=== PATIENT | male | born 1945 | race Caucasian/White ===

== ENCOUNTER 2020-12-15 18:13 | Observation (INO) ==
[2020-12-15 18:32] VITALS: BMI 26.6
--- NOTE | 2020-12-15 19:37 | DR.SOBA ---
HPI Time Seen Time Seen by Provider: 12/15/20 19:36 Primary Care Physician Primary Care Physician: JACKLYN Camargo HPI Comment HPI Comment: PATIENT WITH A HISTORY OF CORONARY ARTERY BYPASS, COMPLAINS OF EXERTIONAL DYSPNEA X 24 HOURS. DENIES CHEST PAIN DISCOMFORT, PALPITATIONS, DIAPHORESIS, FEVER,CHILLS OR COUGHING. Complaints Chief Complaint Doctors Comments: EXERTIONAL DYSPNEA Chief Complaint:: PT REPORT THAT HE WENT FOR A FEW MINUTE WALK AND HE FELT WINDED AND HE FELT LIKE HE COULD NOT CATCH HIS BREATHE, PT IS AWAITING ECHO AND STRESS TEST ON 01/01/21, AND PT HAS AN EKG AT HIS PCP AND PT WAS TOLD IT WAS ABNORMAL THE WEEK BEFORE LAST ,BR Self Treatment fo Chief Complaint: PT APPEARS TO NOT BE IN ANY DISTRESS, PT AMBULATORY TO TRIAGE ,BR COVID-19 Coronavirus risk:travel/contact w/high risk person: No Has patient experienced Coronavirus symptoms: Yes Coronavirus symptoms experienced: Shortness of Breath Reviewed Nurses Notes Reviewed: Yes Source History Provided: Patient Mode of Arrival Mode of Arrival: Stretcher Timing Onset of Chief Complaint: 12/15/20 Duration Duration: Hours (24) Context Onset:: With Light Exertion PE Risk Factors:: None and Estrogen Use Currently on:: Neither Modifying Factors Worsens:: Exertion Improves:: Rest If Cough Cough: None PMH PMH Past Medical History: Yes Past Medical History Comment: EPLILEPSY, Past Surgical History: Yes Surgical History: CABG/Valve Surgery Past Surgical History Comment: KNEE REPLACEMENT, NECK Family History History of Family Medical Conditions: Yes Family Medical History Comment: HEART, Social History Does patient currently use any type of tobacco product: No Have you used tobacco products in the last 12 months: No Type of Tobacco Use: None Does any household member use tobacco: No Alcohol Use: None Do you use any recreational Drugs:: No Lives With: Family Lives Where: Home Travel Risk Coronavirus risk:travel/contact w/high risk person: No Has patient experienced Coronavirus symptoms: Yes Coronavirus symptoms experienced: Shortness of Breath Infectious screening In the last 2 months have you had wt loss of >10#?: NO Have you had fever, night sweats or hemotysis?: No Have you traveled outside the country in the last 6 months?: No Isolation: Standard ROS Review of Systems Constitutional: No Symptoms Reported Eyes: No Symptoms Reported ENTM: No Symptoms Reported Respiratoy: Short of Breath Cardiovascular: Other (EXERTIONAL DYSPNEA) Gastrointestinal/Abdominal: No Symptoms Reported Genitourinary: No Symptoms Reported Neurological: No Symptoms Reported Musculoskeletal: No Symptoms Reported Integumentary: No Symptoms Reported Hematologic/Lymphatic: No Symptoms Reported Endocrine: No Symptoms Reported Psychiatric: No Symptoms Reported All Other Systems: Reviewed and Negative PE Vital Signs Vitals: Temperature 98.3 F Pulse Rate 56 Respiratory Rate 18 Blood Pressure 137/63 O2 Sat by Pulse Oximetry 96 General General Appearance: Alert and In No Apparent Distress Head Head Exam: Normal Inspection, Atraumatic and Normocephalic Eyes Eye exam: Normal Appearance, PERRL and EOMI ENT ENT Exam: Normal Exam and Normal Oropharynx Neck Neck Exam: Normal Inspection and Full ROM Chest Chest Inspection: Normal Inspection and Symmetric Chest Wall Rise Respiratory Respiratory Exam: Normal Lung Sounds Bilat and Other (NO WHEEZES, RONCHI OR RALES) Respiratory Exam: Bilateral: Clear to Auscultation Cardiovascular Cardiovascular Exam: Regular Rate and Normal Rhythm Abdominal Exam Abdominal Exam: Normal Inspection and Normal Bowel Sounds Extremities Extremities Exam: Normal Inspection and Full ROM Back Back Exam: Normal Inspection and Full ROM Neurologic Neurological Exam: Alert, Oriented X3 and CN II-XII Intact Psychiatric Psychiatric Exam: Normal Affect and Normal Mood MDM Differential Diagnosis Differential Diagnosis: CHF, Pneumonia and Pulmonary embolism COURSE Treatment Treatment: SALINE LOCK, LOVENOX 40MG SUBQ Reevaluation 1st: Resolved (AT REST ONLY) Consultation Call Returned: 21:27 Consultation Comments: DISCUSSED FINDINGS WITH DR PATEL FOR OBSERVATION ROR Labs Reviewed Laboratory Results Reviewed?: Yes Result Diagrams: 12/15/20 19:15 12/15/20 19:15 Laboratory: WBC 9.1 X10^3/uL (3.6-10.0) 12/15/20 19:15 RBC 3.24 X10^6/uL (4.7-6.0) L 12/15/20 19:15 Hgb 10.8 g/dL (13.5-18.0) L 12/15/20 19:15 Hct 31.4 % (42.0-54.0) L 12/15/20 19:15 MCV 96.9 fL (80.0-100.0) 12/15/20 19:15 MCH 33.3 pg (27.0-34.0) 12/15/20 19:15 MCHC 34.3 g/dL (33.0-35.0) 12/15/20 19:15 RDW 12.7 % (11.6-16.5) 12/15/20 19:15 Plt Count 207 X10^3/uL (150.0-450.0) 12/15/20 19:15 MPV 9.2 fL (7.4-11.0) 12/15/20 19:15 Neut % (Auto) 65.6 % (42.0-75.0) 12/15/20 19:15 Lymph % (Auto) 25.1 % (21.0-51.0) 12/15/20 19:15 [place] % (Auto) 8.1 % (0.0-13.0) 12/15/20 19:15 Eos % (Auto) 1.0 % (0.9-2.9) 12/15/20 19:15 Baso % (Auto) 0.2 % (0.2-1.0) 12/15/20 19:15 Neut # (Auto) 6.0 x10^3/uL (2.2-4.8) H 12/15/20 19:15 Lymph # (Auto) 2.3 X10^3/uL (1.3-2.9) 12/15/20 19:15 [place] # (Auto) 0.7 x10^3/uL (0.3-0.8) 12/15/20 19:15 Eos # (Auto) 0.1 x10^3/uL (0.0-0.2) 12/15/20 19:15 Baso # (Auto) 0.0 X10^3/uL (0.0-0.1) 12/15/20 19:15 Absolute Nucleated RBC 0.1 /100WBC 12/15/20 19:15 PT 14.2 SECONDS (11.8-14.3) 12/15/20 19:15 INR Target Range - 12/15/20 19:15 INR 1.16 (0.8-1.3) 12/15/20 19:15 D-Dimer 1.89 ug/ml (0.0-0.57) H* 12/15/20 19:15 Sodium 138 mmol/L (136-145) 12/15/20 19:15 Corrected Sodium 139 mmol/L (136-145) 12/15/20 19:15 Potassium 5.1 mmol/L (3.5-5.1) 12/15/20 19:15 Chloride 105 mmol/L (98-107) 12/15/20 19:15 Carbon Dioxide 27.0 mmol/L (21-32) 12/15/20 19:15 BUN 27 mg/dL (7-18) H 12/15/20 19:15 Creatinine 1.86 mg/dL (0.70-1.30) H 12/15/20 19:15 Est GFR (MDRD) Af Amer 47 (>60) L 12/15/20 19:15 Est GFR (MDRD) Non-Af 39 (>60) L 12/15/20 19:15 Glucose 134 mg/dL (65-99) H 12/15/20 19:15 Calcium 8.7 mg/dL (8.5-10.1) 12/15/20 19:15 Corrected Calcium 9.4 mg/dL (8.5-10.1) 12/15/20 19:15 Total Bilirubin 0.20 mg/dL (0.2-1.0) 12/15/20 19:15 AST 28 Units/L (15-37) 12/15/20 19:15 ALT 32 Units/L (12-78) 12/15/20 19:15 Alkaline Phosphatase 108 Units/L (46-116) 12/15/20 19:15 Troponin I 0.04 ng/mL (0-1.5) 12/15/20 19:15 B-Natriuretic Peptide 362 pg/mL (0-79) H 12/15/20 19:15 Total Protein 6.5 g/dL (6.4-8.2) 12/15/20 19:15 Albumin 3.1 g/dL (3.4-5.0) L 12/15/20 19:15 Globulin 3.4 g/dL (2.5-4.5) 12/15/20 19:15 Albumin/Globulin Ratio 0.9 Ratio (1.1-2.1) L 12/15/20 19:15 SARS CoV-2 RNA Rapid MINGO Negative (NEGATIVE) 12/15/20 21:37 XRAY X-ray Results: PORTABLE CHEST XRAY MILD CARDIOMEGALY, NO EVIDENCE OF CONGESTIVE HEART FAILURE EKG Rate: 52 [place]: Normal Rhythm: SB and PACs Opioid Opioid Risk Tool Age (Yasmany box if 16-45): No History of Preadolescent Sexual Abuse: No Total: 0 Total Score Risk Category: Low Risk Copyright: Evelio NAZARIO predicting aberrant behaviors Diagnosis Discharge Problem: Acute dyspnea Instructions Forms: Precautions for COVID19 Patient Portal Social Distancing
[2020-12-15 19:54] LABS: BASOPHILS % (AUTO) 0.2 % (0.2-1.0); EOSINOPHILS # (AUTO) 0.1 x10^3/uL (0.0-0.2); HEMATOCRIT 31.4 % (42.0-54.0); HEMOGLOBIN 10.8 g/dL (13.5-18.0); LYMPHOCYTES # (AUTO) 2.3 X10^3/uL (1.3-2.9); LYMPHOCYTES % (AUTO) 25.1 % (21.0-51.0); MEAN CORPUSCULAR HEMOGLOBIN 33.3 pg (27.0-34.0); MEAN CORPUSCULAR HGB CONC 34.3 g/dL (33.0-35.0); MEAN CORPUSCULAR VOLUME 96.9 fL (80.0-100.0); MEAN PLATELET VOLUME 9.2 fL (7.4-11.0); MONOCYTES # (AUTO) 0.7 x10^3/uL (0.3-0.8); MONOCYTES % (AUTO) 8.1 % (0.0-13.0); NEUTROPHILS % (AUTO) 65.6 % (42.0-75.0); PLATELET COUNT 207 X10^3/uL (150.0-450.0); RED BLOOD COUNT 3.24 X10^6/uL (4.7-6.0); RED CELL DISTRIBUTION WIDTH 12.7 % (11.6-16.5); WHITE BLOOD COUNT 9.1 X10^3/uL (3.6-10.0)
[2020-12-15 20:03] LABS: ALBUMIN 3.1 g/dL (3.4-5.0); CALCIUM 8.7 mg/dL (8.5-10.1); COR CA(FOR HYPOALB) 9.4 mg/dL (8.5-10.1); CREATININE 1.86 mg/dL (0.70-1.30); TOTAL PROTEIN 6.5 g/dL (6.4-8.2); TROPONIN I 0.04 ng/mL (0-1.5)
--- NOTE | 2020-12-15 20:31 | RAD ---
CHEST, 1 VIEWHistory: PT REPORT THAT HE WENT FOR A FEW MINUTE WALK AND HE FELT WINDEDComparison: NoneFindings: Accounting for AP technique and patient rotation, the cardiac silhouette is mildly enlarged without congestive failure. Previous CABG noted. No acute alveolar infiltrate or significant effusion is identified. No pneumothorax.Impression: Mild cardiomegaly without CHF or additional acute cardiopulmonary abnormality.Electronically signed by: JAYLEN DODGE (Dec 15, 2020 20:28:43)
[2020-12-15] MEDS ORDERED: LOVENOX INJ 40 MG SYR SC ONE (23:16)
[2020-12-15] MEDS: LOVENOX INJ 40 MG SYR SC STA ×2 (23:18→23:19)
[2020-12-16 02:47] LABS: CKMB % 3.3 % (<4); CREATINE KINASE MB 3.3 ng/mL (0-4.0); TROPONIN I 0.13 ng/mL (0-1.5)
[2020-12-16] MEDS: PHENOBARBITAL TAB 30 MG (32.4MG) PO SCH ×4 (05:32→21:30)
[2020-12-16] MEDS: DILANTIN CAP 100 MG EXT REL PO SCH ×4 (05:32→21:30)
[2020-12-16] MEDS ORDERED: PHENOBARBITAL 30 MG PO SCH (06:00)
[2020-12-16 08:49] LABS: CKMB % 3.5 % (<4); CREATINE KINASE MB 3.4 ng/mL (0-4.0); TROPONIN I 0.18 ng/mL (0-1.5)
[2020-12-16] MEDS ORDERED: ASPIRIN EC 81 MG PO SCH (09:00)
[2020-12-16] MEDS ORDERED: PATIENT'S HOME MEDICATION (Levocetirizine 5 mg tablet) PO SCH (09:00)
[2020-12-16] MEDS ORDERED: PATIENT'S HOME MEDICATION (Aspirin 81 mg Tablet) PO SCH (09:00)
[2020-12-16] MEDS: ZyrTEC TAB 10 MG PO SCH (09:40)
[2020-12-16] MEDS: LOVENOX INJ 40 MG SYR SC SCH (09:40)
[2020-12-16] MEDS: CELEBREX PO SCH ×2 (09:40→10:00)
[2020-12-16] MEDS: TOPROL XL PO SCH (10:00)
[2020-12-16] MEDS: NS 1000 ML 1,000 ML IV SCH ×2 (11:02→21:30)
[2020-12-16] MEDS ORDERED: ULTRAM PO PRN (19:33)
[2020-12-17] MEDS: NS 1000 ML 1,000 ML IV SCH ×2 (03:12→10:48)
[2020-12-17] MEDS: DILANTIN CAP 100 MG EXT REL PO SCH (05:13)
[2020-12-17] MEDS: PHENOBARBITAL TAB 30 MG (32.4MG) PO SCH (05:13)
[2020-12-17 05:33] LABS: BASOPHILS % (AUTO) 0.4 % (0.2-1.0); EOSINOPHILS # (AUTO) 0.2 x10^3/uL (0.0-0.2); EOSINOPHILS % (AUTO) 2.5 % (0.9-2.9); HEMATOCRIT 29.2 % (42.0-54.0); HEMOGLOBIN 10.2 g/dL (13.5-18.0); LYMPHOCYTES # (AUTO) 2.1 X10^3/uL (1.3-2.9); LYMPHOCYTES % (AUTO) 30.5 % (21.0-51.0); MEAN CORPUSCULAR HEMOGLOBIN 33.7 pg (27.0-34.0); MEAN CORPUSCULAR HGB CONC 35.1 g/dL (33.0-35.0); MEAN PLATELET VOLUME 9.4 fL (7.4-11.0); MONOCYTES # (AUTO) 0.6 x10^3/uL (0.3-0.8); MONOCYTES % (AUTO) 9.5 % (0.0-13.0); NEUTROPHILS # (AUTO) 3.9 x10^3/uL (2.2-4.8); NEUTROPHILS % (AUTO) 57.1 % (42.0-75.0); PLATELET COUNT 193 X10^3/uL (150.0-450.0); RED BLOOD COUNT 3.04 X10^6/uL (4.7-6.0); RED CELL DISTRIBUTION WIDTH 12.9 % (11.6-16.5); WHITE BLOOD COUNT 6.8 X10^3/uL (3.6-10.0)
[2020-12-17 05:47] LABS: ALANINE AMINOTRANSFERASE 26 Units/L (12-78); ALBUMIN 2.5 g/dL (3.4-5.0); ALKALINE PHOSPHATASE 95 Units/L (46-116); ASPARTATE AMINO TRANSFERASE 19 Units/L (15-37); BLOOD UREA NITROGEN 23 mg/dL (7-18); CHLORIDE 114 mmol/L (98-107); COR CA(FOR HYPOALB) 9.2 mg/dL (8.5-10.1); CREATININE 1.26 mg/dL (0.70-1.30); SODIUM 147 mmol/L (136-145); TOTAL PROTEIN 5.7 g/dL (6.4-8.2); eGFR NON BLACK RACES 60 (>60)
[2020-12-17 05:49] LABS: TOTAL PSA 0.43 ng/mL (0.13-4.0)
[2020-12-17] MEDS: LOVENOX INJ 40 MG SYR SC SCH (10:05)
[2020-12-17] MEDS: TOPROL XL PO SCH (10:06)
[2020-12-17] MEDS: ZyrTEC TAB 10 MG PO SCH (10:06)
--- NOTE | 2020-12-17 11:57 | CT ---
HISTORYElevated D-dimerSTUDYCTA chest with contrast for pulmonary embolusTechnique: Axial noncontrast images with coronal and sagittal reformats. Three dimensional maximum intensity projection images were obtained in evaluated. Dose reduction procedures were used with mA/kv adjusted for body size.COMPARISONNoneFINDINGSThere is no evidence for acute pulmonary thromboembolic disease in the main pulmonary artery, right and left main pulmonary artery, lobar branches and proximal most segmental branches. Evaluation more peripherally is not possible due to suboptimal bolus timing. Examination of the mediastinum demonstrated no evidence for mediastinal masses, enlarged mediastinal or enlarged hilar adenopathy or significant aortic abnormality. Coronary artery calcifications are present. No pleural effusions are identified. No chest wall or axillary abnormality is identified. Those portions of the upper abdominal organs visualized were within normal limits with the exception of multiple low-attenuation areas within the gallbladder likely representing cholesterol calculi. Alternatively these could represent air or gas bubbles possibly indicative of infection. Gallbladder sonography is recommended for further evaluation. Examination of the lung moreno demonstrated no significant nodules, masses, alveolar infiltrates, areas of consolidation, significant peribronchial thickening or bronchiectasis.IMPRESSIONNo evidence for acute pulmonary thromboembolic disease in the main pulmonary artery, right and left main pulmonary arteries, lobar branches and proximal most segmental branches. Evaluation more peripherally is not possible due to suboptimal bolus timingLungs clearMultiple areas of low attenuation within the gallbladder possibly representing cholesterol calculi, less likely gas bubbles indicative of infection. Correlation with gallbladder sonography is recommended.Electronically signed by: TIM DEL RIO (Dec 17, 2020 11:55:50)
[2020-12-17 14:07] VITALS: BP 166/72
== END 2020-12-17 14:05 | disposition home or self-care (01) ==
LOC: ER 18:14 → MED/SURG 18:14
PROVIDERS: ADMIT Obstetrics & Gynecology Obstetrics; ATTEND Obstetrics & Gynecology Obstetrics
DX: M19.90 Unspecified osteoarthritis, unspecified site; I25.10 Atherosclerotic heart disease of native coronary artery without angina pectoris; R06.09 Other forms of dyspnea; R94.31 Abnormal electrocardiogram [ECG] [EKG]; R79.1 Abnormal coagulation profile; R79.82 Elevated C-reactive protein (CRP); N17.9 Acute kidney failure, unspecified